=== PATIENT | male | born 1940 | race Caucasian/White ===

== ENCOUNTER → 2017-03-31 | Outpatient (CLI) | payer SELFPAY ==
[2017-03-31 08:15] LABS: ADJUSTED CALCIUM 9.1 mg/dL (8.4-10.2); ALBUMIN 4.3 gm/dL (3.5-5.0); BILIRUBIN,TOTAL 0.9 mg/dL (0.0-1.0); CALCIUM 9.3 mg/dL (8.4-10.2); CREATININE, serum 1.55 mg/dL (0.66-1.25); POTASSIUM 4.8 mmol/L (3.4-5.0); TOTAL PROTEIN 7.6 gm/dL (6.4-8.2)
== END ==
LOC: COL.LAB 07:23
DX: I10 Essential (primary) hypertension (principal); R09.89 Other specified symptoms and signs involving the circulatory and respiratory systems

== ENCOUNTER → 2017-06-19 | Outpatient (CLI) | payer SELFPAY | LOC: COL.RAD 09:00 | DX: Z01.89 Encounter for other specified special examinations (principal) ==

== ENCOUNTER → 2017-07-02 | Outpatient (CLI) | payer SELFPAY | LOC: COL.RAD 09:29 | DX: I71.4 Abdominal aortic aneurysm, without rupture (principal); I74.5 Embolism and thrombosis of iliac artery; I72.3 Aneurysm of iliac artery; N18.9 Chronic kidney disease, unspecified; M79.605 Pain in left leg; M79.604 Pain in right leg | CPT/HCPCS: Q9967 ==

== ENCOUNTER → 2018-04-20 | Outpatient (CLI) | payer SELFPAY ==
[2018-04-20 12:19] LABS: ALBUMIN 4.2 gm/dL (3.5-5.0); BILIRUBIN,TOTAL 1.1 mg/dL (0.0-1.0); CALCIUM 9.4 mg/dL (8.4-10.2); CHOLESTEROL RISK RATIO 6.4; CREATININE, serum 1.56 mg/dL (0.66-1.25); POTASSIUM 4.5 mmol/L (3.4-5.0); TOTAL PROTEIN 7.6 gm/dL (6.4-8.2)
[2018-04-20 12:22] LABS: BASO # 0.1 (0.0-0.2); EOS # 0.3 (0.0-0.7); EOS % 5.4 % (0-4.0); GRAN # 3.5 (1.4-6.5); GRAN % 57.6 % (42.2-75.2); HEMATOCRIT 42.5 % (42.0-52.0); HEMOGLOBIN 14.6 g/dl (13.5-18.0); LYMPH # 1.8 (1.2-3.4); MEAN CELL VOLUME 94 fl (80.0-100.0); MEAN CORPUSCULAR HEMOGLOBIN 32 pg (27.0-31.0); MEAN CORPUSCULAR HGB CONC 34 g/dl (33.0-37.0); MEAN PLATELET VOLUME 10.7 fl (7.4-10.4); MONO # 0.4 (0.1-0.6); MONO % 6.7 % (1.7-9.3); PLATELET COUNT 167 K/mm3 (130-400); RED BLOOD COUNT 4.52 M/mm3 (4.20-5.60); REDCELL DISTRIBUTION WIDTH-CV 12.2 % (11.5-14.5)
[2018-04-20 12:37] LABS: MUCOUS Present /lpf; PH 5 (5-8); SQUAMOUS EPITHELIAL 0-2 /hpf; URINE APPEARANCE Clear; URINE BACTERIA None Seen /hpf; URINE BILIRUBIN Negative (NEGATIVE); URINE BLOOD 1+ (NEGATIVE); URINE COLOR Yellow; URINE GLUCOSE Negative (NEGATIVE); URINE KETONE Negative (NEGATIVE); URINE LEUKOCYTE ESTERASE Negative (NEGATIVE); URINE NITRATE Negative (NEGATIVE); URINE PROTEIN(semi-quant) Negative (NEGATIVE); URINE RBC 0-2 /hpf; URINE UROBILINOGEN Negative (NEGATIVE); URINE WBC None Seen /hpf
[2018-04-20 12:48] LABS: COLLECTION METHOD CLEAN CATCH
[2018-04-20 12:49] LABS: THYROID STIMULATING HORMONE 3.3 uIU/mL (0.465-4.680)
== END ==
LOC: ZCOL.LAB 12:06
PROVIDERS: Internal Medicine
DX: E78.5 Hyperlipidemia, unspecified (principal); I10 Essential (primary) hypertension

== ENCOUNTER → 2018-12-23 | Outpatient (CLI) | payer OTHER ==
[2018-12-23 08:03] LABS: HEMATOCRIT 45.8 % (42.0-52.0); HEMOGLOBIN 15.2 g/dl (13.5-18.0); MEAN CELL VOLUME 98 fl (80.0-100.0); MEAN CORPUSCULAR HEMOGLOBIN 33 pg (27.0-31.0); MEAN CORPUSCULAR HGB CONC 33 g/dl (33.0-37.0); MEAN PLATELET VOLUME 9.6 fl (7.4-10.4); PLATELET COUNT 152 K/mm3 (130-400); RED BLOOD COUNT 4.68 M/mm3 (4.20-5.60); REDCELL DISTRIBUTION WIDTH-CV 12.8 % (11.5-14.5)
[2018-12-23 08:05] LABS: PH 5 (5-8); SQUAMOUS EPITHELIAL 0-2 /hpf; URINE APPEARANCE Clear; URINE BACTERIA None Seen /hpf; URINE BILIRUBIN Negative (NEGATIVE); URINE BLOOD Negative (NEGATIVE); URINE COLOR Yellow; URINE GLUCOSE Negative (NEGATIVE); URINE KETONE Negative (NEGATIVE); URINE LEUKOCYTE ESTERASE Negative (NEGATIVE); URINE NITRATE Negative (NEGATIVE); URINE PROTEIN(semi-quant) Negative (NEGATIVE); URINE RBC 0-2 /hpf; URINE UROBILINOGEN Negative (NEGATIVE)
[2018-12-23 08:12] LABS: ALBUMIN 4.5 gm/dL (3.5-5.0); BILIRUBIN,TOTAL 0.9 mg/dL (0.0-1.0); CALCIUM 9.6 mg/dL (8.4-10.2); CREATININE, serum 1.74 (0.66-1.25); POTASSIUM 4.6 mmol/L (3.4-5.0); TOTAL PROTEIN 8.2 gm/dL (6.4-8.2)
[2018-12-23 08:21] LABS: COLLECTION METHOD CLEAN CATCH
== END ==
LOC: COL.RAD 12-21 10:00
DX: I71.4 Abdominal aortic aneurysm, without rupture (principal); I74.5 Embolism and thrombosis of iliac artery; N40.0 Benign prostatic hyperplasia without lower urinary tract symptoms; R59.0 Localized enlarged lymph nodes; R31.0 Gross hematuria
CPT/HCPCS: Q9967

== ENCOUNTER → 2019-02-11 | Outpatient (CLI) | payer SELFPAY ==
[~2019-02-11] VITALS: Ht 157.5 cm; Wt 66.0 kg
[~2019-02-11] MED LIST: COZAAR 50MG50 MG/TAB PO; NORVASC 10MG10 MG PO
[2019-02-11 06:10] VITALS: BP 163/97; PULSE 75
[2019-02-11 07:37] VITALS: BP 179/100; PULSE 80
[2019-02-11 07:38] VITALS: BP 155/86; PULSE 86
[2019-02-11 07:39] VITALS: BP 164/92; PULSE 83
[2019-02-11 07:40] VITALS: BP 178/96; PULSE 84
[2019-02-11 07:41] VITALS: BP 175/95; PULSE 83
== END ==
LOC: COL.CARD 05:49
DX: R07.9 Chest pain, unspecified (principal); I34.0 Nonrheumatic mitral (valve) insufficiency; I70.0 Atherosclerosis of aorta; I71.4 Abdominal aortic aneurysm, without rupture; I73.9 Peripheral vascular disease, unspecified; I10 Essential (primary) hypertension
CPT/HCPCS: A9500; J2785

== ENCOUNTER 2019-03-17 18:07 | Emergency (ER) | payer SELFPAY ==
[2019-03-17 18:13] VITALS: TEMP 98
[2019-03-17] MEDS ORDERED: TYLENOL 325MG325 MG PO (18:50)
[2019-03-17] MEDS ORDERED: PLAVIX 75MG TAB75 MG PO (18:50)
[2019-03-17] MEDS ORDERED: NORVASC 5MG5 MG/TAB PO (18:50)
[2019-03-17] MEDS ORDERED: LIPITOR 40MG TA40 MG PO (18:50)
[2019-03-17] MEDS ORDERED: COZAAR100 MG PO ×2 (18:51)
[2019-03-17] MEDS ORDERED: ROXICODONE 55 MG/TAB PO (18:52)
[2019-03-17 19:11] LABS: BASO % 0.6 % (0.0-2.0); EOS # 0.4 (0.0-0.7); EOS % 5.4 % (0-4.0); GRAN # 5.1 (1.4-6.5); GRAN % 69.7 % (42.2-75.2); LYMPH % 14.4 % (20.0-51.0); MEAN CELL VOLUME 97 fl (80.0-100.0); MEAN CORPUSCULAR HGB CONC 34 g/dl (33.0-37.0); MEAN PLATELET VOLUME 9.1 fl (7.4-10.4); MONO # 0.7 (0.1-0.6); MONO % 9.3 % (1.7-9.3); PLATELET COUNT 352 K/mm3 (130-400); RED BLOOD COUNT 2.86 M/mm3 (4.20-5.60); REDCELL DISTRIBUTION WIDTH-CV 11.9 % (11.5-14.5)
[2019-03-17 19:15] LABS: HEMATOCRIT 27.8 % (42.0-52.0); HEMOGLOBIN 9.4 g/dl (13.5-18.0); MEAN CORPUSCULAR HEMOGLOBIN 33 pg (27.0-31.0)
[2019-03-17 19:22] LABS: ALBUMIN 3.7 gm/dL (3.5-5.0); BILIRUBIN,TOTAL 0.6 mg/dL (0.0-1.0); CALCIUM 8.7 mg/dL (8.4-10.2); CREATININE, serum 2.79 (0.66-1.25); POTASSIUM 5.5 mmol/L (3.4-5.0); TOTAL PROTEIN 7.1 gm/dL (6.4-8.2)
[2019-03-17 21:27] VITALS: BP 130/63; PULSE 79
== END 2019-03-17 22:12 | disposition home or self-care (01) ==
LOC: COL.ER 18:07
PROVIDERS: Emergency Medicine
DX: I96 Gangrene, not elsewhere classified (principal); N18.9 Chronic kidney disease, unspecified; D64.9 Anemia, unspecified; Z79.02 Long term (current) use of antithrombotics/antiplatelets; Z95.828 Presence of other vascular implants and grafts
CPT/HCPCS: J7030

== ENCOUNTER → 2019-04-22 | Outpatient (CLI) | payer SELFPAY ==
[~2019-04-22] MED LIST changes: +COZAAR100 MG PO; +LIPITOR 40MG TA40 MG PO; +NORVASC 5MG5 MG/TAB PO; +PLAVIX 75MG TAB75 MG PO; +ROXICODONE 55 MG/TAB PO; +TYLENOL 325MG325 MG PO
[2019-04-22 08:05] LABS: CREATININE, serum 2.95 (0.66-1.25)
== END ==
LOC: COL.LAB 07:32
DX: I10 Essential (primary) hypertension (principal)

== ENCOUNTER → 2019-05-05 | Outpatient (CLI) | payer SELFPAY ==
[2019-05-05 14:25] LABS: CREATININE, serum 2.94 (0.66-1.25)
== END ==
LOC: COL.LAB 13:38
PROVIDERS: Internal Medicine
DX: N28.9 Disorder of kidney and ureter, unspecified (principal)